=== PATIENT | male | born 1960 | race Caucasian/White ===

== ENCOUNTER → 2017-03-20 | Outpatient (CLI) | payer BC | LOC: COL.RAD 07:17 | DX: R10.31 Right lower quadrant pain (principal) | CPT/HCPCS: Q9967 ==

== ENCOUNTER 2020-07-20 18:40 | Inpatient (IN) | payer BC ==
[~2020-07-20] VITALS: Ht 193 cm; Wt 121.0 kg
[2020-07-20] VITALS (209 sets, daily range): BP systolic 139–156; BP diastolic 100–101; PULSE 111–130; TEMP 100.7; O2SAT 87–100
[2020-07-20] MEDS ORDERED: TOPROL XL 50MG50 MG PO (19:49)
[2020-07-20 19:56] LABS: ARTERIAL BLD GAS O2 SATURATION 94.4 % (92-100); ARTERIAL BLD GAS TCO2 CT 21.8; ARTERIAL BLOOD GAS PO2 67.6 mmHg (80-100); ARTERIAL BLOOD GAS pH 7.53 (7.35-7.45)
[2020-07-20 21:34] LABS: ANION GAP 9 mmol/L (7-16); BLOOD UREA NITROGEN 14 mg/dL (9-20); CARBON DIOXIDE 25 mmol/L (22-30); CHLORIDE 101 mmol/L (98-107); CREATININE, serum 0.79 (0.66-1.25); GLUCOSE 102 mg/dL (74-106); MAGNESIUM 2.2 mg/dL (1.6-2.3); PHOSPHOROUS 2.8 mg/dL (2.5-4.5); POTASSIUM 3.7 mmol/L (3.4-5.0); SODIUM 134 mmol/L (137-145)
[2020-07-20 21:57] LABS: INR 1.2 (0.8-3.0); PARTIAL THROMBOPLASTIN TIME 25.2 SECONDS (26.0-37.0); PROTHROMBIN TIME 13.9 SECONDS (9.7-12.8)
[2020-07-20 22:11] LABS: TROPONIN-I < 0.012 ng/mL (0.000-0.035)
[2020-07-21] VITALS (673 sets, daily range): BP systolic 112–142; BP diastolic 63–93; PULSE 75–90; TEMP 97.7–98.5; O2SAT 92–100
[2020-07-21 04:43] LABS: GRAN # 4.4 (1.4-6.5); GRAN % 78.8 % (42.2-75.2); HEMATOCRIT 42.3 % (42.0-52.0); HEMOGLOBIN 14.2 g/dl (13.5-18.0); LYMPH # 0.8 (1.2-3.4); LYMPH % 13.4 % (20.0-51.0); MEAN CELL VOLUME 81 fl (80.0-100.0); MEAN CORPUSCULAR HEMOGLOBIN 27 pg (27.0-31.0); MEAN CORPUSCULAR HGB CONC 34 g/dl (33.0-37.0); MEAN PLATELET VOLUME 11.3 fl (7.4-10.4); MONO # 0.4 (0.1-0.6); MONO % 7.3 % (1.7-9.3); PLATELET COUNT 193 K/mm3 (130-400); RED BLOOD COUNT 5.23 M/mm3 (4.20-5.60); REDCELL DISTRIBUTION WIDTH-CV 14.5 % (11.5-14.5)
[2020-07-21 05:01] LABS: ANION GAP 9 mmol/L (7-16); BLOOD UREA NITROGEN 15 mg/dL (9-20); CALCIUM 7.8 mg/dL (8.4-10.2); CARBON DIOXIDE 21 mmol/L (22-30); CHLORIDE 104 mmol/L (98-107); CREATININE, serum 0.66 (0.66-1.25); GLUCOSE 98 mg/dL (74-106); POTASSIUM 3.7 mmol/L (3.4-5.0); SODIUM 134 mmol/L (137-145)
[2020-07-21 05:14] LABS: TROPONIN-I 6 HR POST INITIAL < 0.012 ng/mL (0.000-0.034)
--- NOTE | 2020-07-21 07:05 | NUR ---
RECEIVED REPOT FROM [facility]. PT SITTING UP IN BED ON 2L VIA NC. ASSISTING PT WITH URINAL IN BED. VSS. HR IN 80s-90s. CALL LIGHT WITHIN REACH.
--- NOTE | 2020-07-21 10:44 | NUR ---
SPOKE WITH PT ABOUT PREDNISONE ALLERGY. PT STATES THAT HE AHS TAKEN IT TWICE BEFORE AND ON DAY 7 HAS A REACTION TO IT AND LAST TIME ENDED UP IN THE HOSPITAL. PT REFUSES TO TAKE ANYMORE. DR DEAN AWARE. NEW ORDERS TO DC MEDICATION AT THIS TIME PER PT'S REFUSAL.
--- NOTE | 2020-07-21 14:16 | NUR ---
SW contacted patient by phone to complete intake assessment. Patient currently resides in [place] and verbally listed Shayy Rucker [phone] as his care support and EMR. Medical records list patients sister Mandy [phone] as next to contact. Patient indicated being independent with ADL's and that he does not currently have a DPOA. Patient declined one at this time. Patient reports that he does not use any DME's and that his PCP is Dr. Turpin, with no upcoming appointments. Patient reports getting his medications from [facility] with no concerns. Patient declined HH services at this time. He was educated about community resources.
--- NOTE | 2020-07-21 15:43 | NUR ---
DISCUSSED WITH DR ELLIOTT ABOUT PT'S CURRENT STATUS AND GTTS. PHYSICIAN STATES HE WILL PLACE FOR A PO BETA KETAN AND THEN GTTS CAN BE TURNED OFF AFTER GIVEN. PHYSICIAN STATES OK TO TRANSFER TO THE FLOOR AFTERWARDS. AWAITING FOR ORDERS.
--- NOTE | 2020-07-21 19:45 | NUR ---
Patient awake and alert watching TV in bed. Denies any pain or shortness of breath. All questions and concerns addressed at this time. VS stable; will continue to monitor. Call light left within reach.
[2020-07-22] VITALS (114 sets, daily range): BP systolic 142–150; BP diastolic 84–98; PULSE 72–87; TEMP 97.5–98.7; O2SAT 94–98
--- NOTE | 2020-07-22 06:07 | NUR ---
Assisted patient up to medical floor via wheelchair. Patient alert and oriented and in no distress upon transfer. Receiving nurse notified that patient was tranported to room.
--- NOTE | 2020-07-22 06:56 | NUR ---
Patient admitted to medical floor room 303 from ICU at 06:25 am. Patient sitting up in bed upon enter the room. Patient alert and oriented. Denies chest pain, SOB, N/V or dizziness while at rest. IV to left AC and right AC has no s/s of complications. Patient is currently on O2 via 2L NC. No s/s of respiratory distress noted. Reviewed preferred phamacy, allergy, and current medications. Call light within reach. Will give report to day shift nurse.
[2020-07-22 07:29] LABS: BASO % 0.1 % (0.0-2.0); GRAN # 5.9 (1.4-6.5); GRAN % 84.9 % (42.2-75.2); HEMATOCRIT 45.9 % (42.0-52.0); HEMOGLOBIN 15.2 g/dl (13.5-18.0); LYMPH # 0.5 (1.2-3.4); LYMPH % 7.2 % (20.0-51.0); MEAN CELL VOLUME 81 fl (80.0-100.0); MEAN CORPUSCULAR HEMOGLOBIN 27 pg (27.0-31.0); MEAN CORPUSCULAR HGB CONC 33 g/dl (33.0-37.0); MEAN PLATELET VOLUME 10.1 fl (7.4-10.4); MONO # 0.5 (0.1-0.6); MONO % 6.8 % (1.7-9.3); PLATELET COUNT 221 K/mm3 (130-400); RED BLOOD COUNT 5.69 M/mm3 (4.20-5.60); REDCELL DISTRIBUTION WIDTH-CV 14.5 % (11.5-14.5)
[2020-07-22 07:46] LABS: ALBUMIN 3.5 gm/dL (3.5-5.0); BILIRUBIN,TOTAL 0.8 mg/dL (0.0-1.0); CALCIUM 8.5 mg/dL (8.4-10.2); CREATININE, serum 0.61 (0.66-1.25); MAGNESIUM 2.4 mg/dL (1.6-2.3); POTASSIUM 4.1 mmol/L (3.4-5.0); TOTAL PROTEIN 6.7 gm/dL (6.4-8.2)
--- NOTE | 2020-07-22 09:00 | NUR ---
Assessment complete. Pt sitting up in bed, A&O x 4, denies pain or shortness of breath. Physical assessment unremarkable. Saline lock IV's to bilat AC's without s/s of complications, sched abx connected and started. Questions invited and answered. POC reviewed. No further needs reported. Call light in reach.
--- NOTE | 2020-07-22 16:30 | NUR ---
VS assessed. Pt with a few questions about care at home upon discharge and possibly needing medical equipment such as a sphygmomanometer. This nurse answsers questions to the best of my ability and agrees to leave message with caser in regarding need for DME at home and insurance coverage. No further needs or questions reported. Call light in reach.
--- NOTE | 2020-07-22 20:30 | NUR ---
Patient assessed at this time. Alert and oriented x 4, and able to make needs known. Denies having pain and discomfort at this time. Peripheral INTs to bilateral ACs. Both sites without redness, warmth, swelling, and pain. Denies SOB and dyspnea. LS CTA. Respirations even and unlabored. HRR. Telemetry: normal sinus. Capillary refill less than 3 seconds. Non-tenting skin turgor. BSAx4. Abdomen soft and non-tender. 1+ edema BLE. Voices no questions, needs, or concerns at this time. Resting in bed with call light within reach.
[2020-07-23 03:44] VITALS: BP 152/94; PULSE 71; TEMP 97.4
--- NOTE | 2020-07-23 06:15 | NUR ---
Patient has been resting in bed. Has denied having pain and discomfort this shift. Has been on room air. Telemetry showing normal sinus. Voices no questions, needs, or concerns at this time. Resting in bed with call light within reach.
[2020-07-23 07:46] VITALS: BP 150/88; PULSE 73; TEMP 96.8
--- NOTE | 2020-07-23 09:00 | NUR ---
Pt awake and alert upon entry, no C/O pain at this time. Shift assessments complete, left Pt call light in reach, bed in lowest position.
[2020-07-23] MEDS ORDERED: DOXYCYCLINE 10100 MG PO (11:22)
[2020-07-23] MEDS ORDERED: DECADRON6 MG PO (11:22)
[2020-07-23] MEDS ORDERED: TYLENOL 325MG325 MG PO (11:23)
[2020-07-23] MEDS ORDERED: ROBITUSSIN100 MG/5 M PO (11:23)
[2020-07-23] MEDS ORDERED: ASPIRIN 81M81 MG/TA2 PO (11:23)
[2020-07-23] MEDS ORDERED: PROAIR HFA0.09 MG/AC IH (11:23)
[2020-07-23] MEDS ORDERED: TAMBOCOR50 MG PO (11:24)
[2020-07-23 12:30] VITALS: BP 146/86; PULSE 73; TEMP 97.5
--- NOTE | 2020-07-23 15:15 | NUR ---
Temporary Help Agency Referral Clerk contacted patient by phone as he is being discharged home today. Patient reports his girlfriend will be here between [phone]. No needs identified at this time.
--- NOTE | 2020-07-23 17:30 | NUR ---
Pt discharged to home, discussed discharge information with Pt. Escorted Pt to entrance, Pt left with sig other via private transportation.
== END 2020-07-23 17:30 | disposition home or self-care (01) | DRG 177 ==
LOC: PEDS 18:40 → ICU 18:40 → PEDS 07-22 06:51
PROVIDERS: Nurse Practitioner Family; ADMIT Internal Medicine
DX: U07.1 COVID-19 (principal); J96.01 Acute respiratory failure with hypoxia; J12.89 Other viral pneumonia; I10 Essential (primary) hypertension; I48.0 Paroxysmal atrial fibrillation; R74.01 Elevation of levels of liver transaminase levels
CPT/HCPCS: 99223-AI; 99232-AI; 99233-AI; 99239; J0696; J1650; J7030; J8540